=== PATIENT | male | born 1960 | race Caucasian/White ===

== ENCOUNTER → 2024-03-31 16:09 | Outpatient (CLI) | payer OTHER, SELFPAY ==
--- NOTE | 2024-03-31 16:16 | DI.RAD.S_ITS ---
PROCEDURE: XR LUMBAR SPINE 2-3V INDICATIONS: LOWER BACK PAIN TECHNIQUE: 3 views of the lumbar spine were acquired. COMPARISON: None. FINDINGS: Bones: 5 [id number] vertebrae are present. There is 8 mm retrolisthesis of L1 on L2 and L2 on L3. 5 mm retrolisthesis of L3 on L4 is also seen. No vertebral body compression fractures. Degenerative endplate changes, loss of disc height and bilateral facet arthrosis throughout lumbar spine is noted. No suspicious bony lesions. Soft tissues: Overlying bowel gas pattern is normal. No suspicious soft tissue calcifications. IMPRESSION: [id number] degenerative disc disease throughout lumbar spine. No acute vertebral body compression fracture. Grade 1 retrolisthesis at L1-2 through L3-4 levels as above. Dictated by: Steve Duncan M.D. on 03/31/2024 at 18:51 Approved by: Steve Duncan M.D. on 03/31/2024 at 18:52
== END ==
PROVIDERS: Referring Provider Chiropractor; Visit Provider Chiropractor
DX: M51.360 Other intervertebral disc degeneration, lumbar region with discogenic back pain only (principal); M43.16 Spondylolisthesis, lumbar region
CPT/HCPCS: 72100